=== PATIENT | female | born 1960 | race Caucasian/White ===

== ENCOUNTER 2024-11-28 13:14 | Emergency (ER) | payer MEDICARE ==
[~2024-11-28] VITALS: Ht 162.6 cm; Wt 58.4 kg
[2024-11-28 13:25] VITALS: BP 200/137; PULSE 70; RESP 15; TEMP 98.8; O2SAT 95
== END 2024-11-28 16:27 | disposition left against medical advice (07) ==
LOC: ER 13:15
DX: R21 Rash and other nonspecific skin eruption (principal); Z53.21 Procedure and treatment not carried out due to patient leaving prior to being seen by health care provider